=== PATIENT | male | born 1965 | race Caucasian/White ===

== ENCOUNTER 2017-04-10 10:53 | Emergency (ER) | payer MEDICAID ==
[~2017-04-10] VITALS: Ht 157.5 cm; Wt 82.0 kg
[2017-04-10] MEDS ORDERED: HYDROCODONE/ACETAMINOPHEN 10/325MG TABLET PO ONE (14:45)
[2017-04-10] MEDS ORDERED: LIDOCAINE HCL 1% 20ML VIAL (Pyxis) INJ INFIL ONE (15:00)
[2017-04-10] MEDS ORDERED: KETOROLAC 60MG/2ML VIAL IM ONE (15:45)
[2017-04-10 15:54] VITALS: BP 142/65
[2017-04-10] MEDS ORDERED: BACITRACIN ZINC OINT UDPKT TOP ONE (16:15)
== END 2017-04-10 16:38 | disposition home or self-care (01) ==
LOC: ER 11:50
DX: S61.212A Laceration without foreign body of right middle finger without damage to nail, initial encounter (principal); M06.9 Rheumatoid arthritis, unspecified; W29.8XXA Contact with other powered hand tools and household machinery, initial encounter; Y93.89 Activity, other specified; Y92.89 Other specified places as the place of occurrence of the external cause; Y99.0 Civilian activity done for income or pay
CPT/HCPCS: 12001; 73130; 96372; 99284; J1885; J3490; X7700; Z7610

== ENCOUNTER 2017-04-13 09:58 | Emergency (ER) | payer MEDICAID ==
[~2017-04-13] VITALS: Ht 157.5 cm; Wt 82.0 kg
[2017-04-13 10:11] VITALS: BP 144/100
== END 2017-04-13 13:00 | disposition home or self-care (01) ==
LOC: ER 12:47
DX: Z04.8 Encounter for examination and observation for other specified reasons (principal); M19.90 Unspecified osteoarthritis, unspecified site
CPT/HCPCS: 99282